=== PATIENT | female | born 1940 | race Caucasian/White ===

== ENCOUNTER → 2024-01-29 14:31 | Outpatient (REF) | payer MEDICARE, OTHER, SELFPAY | LOC: WDC 14:31 | PROVIDERS: ATTENDING PHYSICIAN Family Medicine | DX: Z12.31 Encounter for screening mammogram for malignant neoplasm of breast (principal) | CPT/HCPCS: 77063; 77067 ==

== ENCOUNTER 2024-09-21 06:19 | Day surgery (SDC) | payer MEDICARE, OTHER, SELFPAY ==
[2024-09-16 13:02] VITALS: BMI 33.8
[2024-09-21] VITALS (9 sets, daily range): BP systolic 0–139; BP diastolic 58–74; BMI 33.8
[2024-09-21] MEDS: NORMOSOL-R/PLASMALYTE-A 1000 IV (10:09)
[2024-09-21] MEDS: TYLENOL 1000 MG PO (10:09)
--- NOTE | 2024-09-21 11:16 | W.SUR.PREOP ---
Pre-Operative Surgical Note
-
I have examined this patient prior to the performance of the scheduled procedure.
The patient's condition is unchanged from the time of the current History and
Physical and the patient is able to undergo the scheduled procedure.
[2024-09-21] MEDS: DILAUDID 0.25 MG IV ×2 (16:11→16:36)
--- NOTE | 2024-09-21 16:32 | W.IMMPOSTOP ---
Surgical Immed Post Op Note
-
Primary Surgeon: RAO Powell MD
Assisting Surgeon:
Pre-op Diagnosis: History of breast cancer, history of radiation, history of breast implant
Post-op Diagnosis: Same
Procedure Performed: Right removal and replacement of implant, capsulectomy, fat grafting to the breast; left insertion of silicone gel implant, mastopexy
Anesthesia Type: General
Specimen / Cultures: Breast tissue
Estimated Blood Loss: 30 cc
Complications: None
Operative Findings: As
--- NOTE | 2024-09-21 16:32 | OR.RPT ---
Operative Report
Operative Report
DOS: 09/21/24
Surgeon: RAO Powell MD
Preoperative diagnosis: History of breast cancer, history of breast irradiation, history of breast implant, capsular contracture
Postoperative diagnosis: Same
Procedure:
1. Removal and replacement of right silicone gel breast implant
2. Capsulectomy right breast
3. Insertion of silicone gel breast implant left breast
4. Left breast mastopexy
5. Fat grafting to the right breast, 220 cc, donor site flanks
Complications: None
Anesthesia: General
Specimens: Right breast capsule, left breast skin
EBL: 30 cc
Indication for procedure: Patient is an 84-year-old female with a history of breast cancer status post radiation, mastopexy versus reduction, implant insertion with capsular contracture and left-sided breast ptosis and involutional changes. She
presented desiring a more symmetric and balanced reconstruction with improvement of the symptoms from the capsular contracture on the right which included tightness, pain and asymmetry. She was uncertain of what type of implant was placed on the
right and records were not available. A plan was made for removal of this implant reinsertion of a silicone gel implant. She desired to be larger in size. This will be paired with fat grafting to improve the contour and hopefully reverse some
radiation related changes. Given the surgical scar, a discussion was had about going through the previous scar and that the implant would need to sit lower than the scar and as such the scar would run transversely over the breast. On the left
side, she required an augmentation mastopexy with a silicone gel implant and left in order to achieve her desired symmetry for reconstructive efforts. Risks were reviewed at length including recurrent capsular contracture, implant infection, skin
necrosis, infection, hematoma, seroma. ALCL and breast implant illness implant rupture all reviewed. She desired to proceed accordingly
Procedure in detail: Patient was identified preoperatively and the surgical site was confirmed to be the bilateral breast and donor site of the bilateral flanks for fat grafting. Consents were confirmed and all questions were answered. Patient was
taken back to the operative room placed supine on table. Anesthesia was induced the patient was prepped and draped in the usual sterile fashion using ChloraPrep solution. Timeout for patient safety was performed was confirmed that preoperative
antibiotics were administered bilateral SCDs were placed. Procedure began first on the right side by incising the previous transverse scar. Dissection continued down to the implant capsule. A capsulectomy was then performed to try to expand the
lower pole and release the capsular contracture. This capsule was sent for pathology. After the inframammary fold was lowered and sufficient capsulectomy allowed for skin relaxation, gel sizer was placed the right side. A silicone gel implant was
removed that measured 500 cc. As such a 700 cc implant was selected on the right side to achieve her goals. Meticulous hemostasis was ensured and the wound bed was irrigated with antibiotic solution and dilute Betadine. Using a no touch technique
the highly cohesive Sientra gel silicone implant was placed into the right side. A Beasley funnel was utilized and new gloves were donned prior to this. The wound was then closed in layers with 2-0 Vicryl's deep followed by 3-0 and 4-0 Monocryl's.
Attention was then drawn to the left side where the mastopexy incisions were scored with a 15 blade and the epithelization was performed with a 10 blade after marking the nipple areolar complex with a 42 mm cookie cutter. Superior medial pedicle
was utilized without excision of much breast tissue to perform the ptosis correction and reduce the skin envelope. Through these incisional markings dissection continued down into a submuscular space to perform a subpectoral augmentation on the
side. Pectoralis muscle was released on its insertion on the inframammary fold. Meticulous hemostasis was ensured and using a no touch technique and implant sizer was placed on this side. The mastopexy was tailor tacked closed and the patient was
sat up at her waist to evaluate the relative symmetry. She was returned supine and a smaller implant was selected for the left side. This was placed using a no touch technique as per prior. Wound bed was irrigated with double antibiotic solution
followed by dilute Betadine. New gloves were donned prior to insertion. The implant was close all from the superficial dissection using a running 2-0 Vicryl. The residual mastopexy was then performed suturing the skin in layers including 2-0
Vicryl followed by 3-0 and 4-0 Monocryl. The nipple was inset with good perfusion after following inset. Attention was then drawn to the injection of tumescent at the bilateral flank donor sites. This performed via vocal vocals using a 15 blade.
After waiting a sufficient mount of time lipo aspiration was performed. Fat was collected using the Pure Graft system rinsed and drained accordingly. Approximately 800 cc of Lipo aspirate was removed and 220 cc of processed fat was available for
injection into the right breast. This was distributed along multiple areas to avoid fat necrosis. Vocals were closed with 5-0 fast. Patient tolerated the procedure well was performed out complication. All counts were correct at the end the case.
She was extubated taken the PACU for further care after dressings were placed and compressive bra was placed as well as an abdominal binder.
[2024-09-21] MEDS: ROXICODONE 5 MG PO (17:37)
== END 2024-09-21 18:26 | disposition home or self-care (01) ==
LOC: SDS 06:19
PROVIDERS: ATTENDING PHYSICIAN Surgery Plastic and Reconstructive Surgery; FAMILY PHYSICIAN Family Medicine
DX: T85.44XA Capsular contracture of breast implant, initial encounter (principal); N64.89 Other specified disorders of breast; Y83.1 Surgical operation with implant of artificial internal device as the cause of abnormal reaction of the patient, or of later complication, without mention of misadventure at the time of the procedure; Y81.2 Prosthetic and other implants, materials and accessory general- and plastic-surgery devices associated with adverse incidents; Z85.3 Personal history of malignant neoplasm of breast; Z92.3 Personal history of irradiation
CPT/HCPCS: 19342; 19371; 19316; 15771; 15772 ×4; 88304

== ENCOUNTER → 2025-05-25 15:08 | Outpatient (REF) | payer MEDICARE, OTHER, SELFPAY | LOC: RAD 15:08 | PROVIDERS: ATTENDING PHYSICIAN Family Medicine | DX: M15.0 Primary generalized (osteo)arthritis (principal) | CPT/HCPCS: 72072; 72110 ==

== ENCOUNTER → 2025-07-04 14:00 | Outpatient (REF) | payer MEDICARE, OTHER, SELFPAY | LOC: WDC 14:00 | PROVIDERS: ATTENDING PHYSICIAN Family Medicine | DX: Z12.31 Encounter for screening mammogram for malignant neoplasm of breast (principal) | CPT/HCPCS: 77063; 77067 ==